=== PATIENT | female | born 1950 | race Caucasian/White ===

== ENCOUNTER → 2017-05-15 15:18 | Outpatient (CLI) | payer MEDICARE, OTHER, SELFPAY ==
--- NOTE | 2017-05-15 15:24 | RAD_ITS ---
STUDY: X-RAY - PELVIS AND RIGHT HIP REASON FOR EXAM: Female, 67 years old. Right arm pain and swelling for a couple weeks TECHNIQUE: Radiological exam, hip, unilateral, with pelvis when performed; 2 or 3 views. COMPARISON: None. FINDINGS: There is a non-specific bowel gas pattern. Normal visualized soft tissue structures. The patient is status post L4-L5 instrumentation and laminectomy with fusion Normal bilateral iliac wings, sacroiliac joints and visualized sacrum. Normal bilateral superior and inferior pubic rami. Normal pubic symphysis. Normal bilateral ischial tuberosities. Normal visualized femoral head. Normal acetabulum. Normal hip joint. RAD/Hip 2-3 Views with Pelvis IMPRESSION: No acute lesions noted. Post surgical changes in the lower lumbar spine Electronically Signed: Kei Contreras MD, FACR at 7:38 EST , Service support ,
== END ==
PROVIDERS: Family Provider Family Medicine; PCP Family Medicine; Visit Provider Family Medicine
DX: R10.31 Right lower quadrant pain (principal)
CPT/HCPCS: 73502

== ENCOUNTER 2020-06-16 08:00 | Outpatient (RCR) | payer MEDICARE, OTHER, SELFPAY ==
[2020-06-16] MEDS: COVID-19 VACC, MRNA(PFIZER)/PF 30 MCG/0.3 ML SYRINGE IM (13:19)
[2020-07-07] MEDS: COVID-19 VACC, MRNA(PFIZER)/PF 30 MCG/0.3 ML SYRINGE IM (13:20)
== END 2020-09-15 23:59 ==
LOC: IMMUN 08:00
PROVIDERS: PCP Family Medicine; Visit Provider Family Medicine
DX: Z23 Encounter for immunization (principal)
CPT/HCPCS: 0001A; 0002A; 91300

== ENCOUNTER → 2020-12-29 | Outpatient (CLI) | payer MEDICARE, OTHER, SELFPAY | END | disposition home or self-care (01) | LOC: LABSPEC 15:25 | PROVIDERS: PCP Family Medicine; Referring Provider Physician Assistant Surgical; Visit Provider Physician Assistant Surgical | DX: U07.1 COVID-19 (principal) | CPT/HCPCS: 87635; U0005; U0003 ==

== ENCOUNTER → 2021-01-21 15:34 | Outpatient (CLI) | payer MEDICARE, OTHER, SELFPAY ==
--- NOTE | 2021-01-21 15:38 | RAD_ITS ---
STUDY: X-RAY CHEST REASON FOR EXAM: Female, 70 years old. One-week history of cough. TECHNIQUE: COMPARISON: None. FINDINGS: Hyperinflation. The lungs are clear. There is no demonstrated pleural abnormality. Normal size heart. Normal mediastinum and bay. Normal visualized pulmonary arteries. Normal visualized aortic arch and descending thoracic aorta. There are diffuse degenerative changes of the visualized thoracic spine. Normal visualized ribs, clavicles, and shoulders. There is no demonstrated abnormality of the visualized soft tissue structures of the upper abdomen. RAD/Chest PA and Lateral IMPRESSION: Hyperinflation. The lungs are clear. Electronically Signed: Hector Tran MD at 15:49 EDT , Service support ,
== END ==
PROVIDERS: PCP Family Medicine; Referring Provider Physician Assistant; Visit Provider Physician Assistant
DX: R05.9 Cough, unspecified (principal)
CPT/HCPCS: 71046

== ENCOUNTER → 2021-10-04 | Outpatient (CLI) | payer MEDICARE, OTHER, SELFPAY ==
--- NOTE | 2021-10-04 16:34 | RAD_ITS ---
STUDY: X-RAY - PELVIS AND RIGHT HIP REASON FOR EXAM: Female, 71 years old. Technologist Notes RIGHT HIP AND LOWER BACK PAIN. M16.11 TECHNIQUE: XR Hip Unilateral with Pelvis when performed; 2-3 Views COMPARISON: None. FINDINGS: There is a non-specific bowel gas pattern. Normal visualized soft tissue structures. Normal bilateral iliac wings, sacroiliac joints and visualized sacrum. Normal bilateral superior and inferior pubic rami. Normal pubic symphysis. Normal bilateral ischial tuberosities. Total right hip arthroplasty. No acute findings of the left hip. Spinal fixation hardware noted in the visualized lumbar spine. RAD/HIP, UNI W/ Pelvis 2-3 Views IMPRESSION: No acute findings. Electronically Signed: Nabil Aly MD at 17:23 EDT ,
--- NOTE | 2021-10-04 16:40 | RAD_ITS ---
STUDY: X-RAY - LUMBAR SPINE REASON FOR EXAM: Female, 71 years old. Technologist Notes RIGHT HIP AND LOWER BACK PAIN. M96.1 TECHNIQUE: XR Spine Lumbar 2 or 3 Views COMPARISON: Nov 26 2015 3:59pm FINDINGS: Normal lumbar lordosis. There is a dextroscoliosis of the lumbar spine. There is a normal alignment of the vertebrae. status post L4-L5 posterior fusion and laminectomy. There is multilevel endplate spondylosis of the lumbar vertebrae. There is multi-level degenerative disc disease with multi-level disc space narrowing. There are atherosclerotic vascular calcifications. The soft tissue structures are unremarkable. RAD/Lumbar Spine 2 or 3 Views IMPRESSION: Degenerative changes of the spine, as detailed above. Electronically Signed: Nabil Aly MD at 18:05 EDT ,
== END | disposition home or self-care (01) ==
LOC: RAD 16:32
PROVIDERS: PCP Family Medicine; Visit Provider Anesthesiology Pain Medicine
DX: M16.11 Unilateral primary osteoarthritis, right hip (principal); M96.1 Postlaminectomy syndrome, not elsewhere classified
CPT/HCPCS: 72100; 73502

== ENCOUNTER 2022-03-25 10:30 | Outpatient (RCR) | payer MEDICARE, OTHER, SELFPAY ==
--- NOTE | 2022-01-24 09:38 | HP.PTEVAL ---
Patient's Visit Information OMI CASEY is a 71 year old F referred to Physical Therapy by Dr. Danny Saldaña MD with a diagnosis of Vestibular Therapy. Date of Evaluation: 01/24/22 Physical Therapist: FELECIA Reilly - Visit Plan Frequency: 2x /Week Duration: 2 Months Plan: 2X/ week for 8 weeks for vestibular inputs, standing on foam, walking BW, head turns, gait training (heel to toe, longer strides), high level balance with HEP. HEP: seated horizontal head turns and vertical head turns - Subjective Pt is having a lot of difficulty with balance. Pt has trouble walking on uneven surfaces. She will occ miss a step with just walking or going up stairs. Stepping when outside of her house she feels more uncomfortable and the uneven surfaces give her a lot of trouble. Walking in the the yard and in the field was hard for her and she would lose her balance and has not fallen and she veering. Pt is very fearful at this point of falling. 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 Pt noticed a little funny feeling in her head this morning but no room spinning. She has to make sure she has to have her balance before she moves when stands up out of bed. This has been sneaking up on her for the last 6 months. - Pain R hip pain Pain Intensity (Out of 10): 0 Pain Intensity Range: 3 Comment: with movement/wrong way back pain Pain Intensity (Out of 10): 1 - Objective Gait: Walks with shortened steps and decrease stride length and increase veering. No trunk rotation and no arm swing and no head movement. Stairs: Up and down stairs with 2 hand rails recip with CGA. FGA: 9. CATSIB: 62. LE MMT: hip flex R 8.3# and L hip 13.2. R knee ext 15.2# and L 23.8#. R knee flex 11.5# and 12.1#. Heel and toe raises able with UE support and struggles with toe raises - Balance/Special Test Scores Functional Gait Assessment Score: 9 % Disability: 70.0000 CATSIB Score (Max score 120 seconds): 62 Lower Extremity Functional Score: 30 - Goals Goal 1:: I HEP Goal Time Frame: 8-12 Weeks Goal 2:: Increase CATSIB score (at eval 62) to decrease fall risk Goal Time Frame: 8-12 Weeks Goal 3:: Increase FGA score to decrease balance (score at eval was 9) Goal Time Frame: 8-12 Weeks Goal 4:: Be able to walk with increase stride with heel to toe gait pattern and increase arm swing Goal Time Frame: 8-12 Weeks Goal 5:: Be able to walk BW with increase stride and confidence with CGA without LOB Goal Time Frame: 8-12 Weeks Goal 6:: Be able to stand on foam for 30 seconds on flatter foot (likes to stand on her toes) Goal Time Frame: 8-12 Weeks - Rehabilitation Potential Rehabilitation Potential: Good - Anticipated Interventions Patient/Client Instruction: Educate patient on: Condition, Plan of Care For the Purpose of:: To improve muscle performance and motor function, To improve ability to perform ADL's, To increase tolerance to activity/condition/position, To improve performance and independence with ADL's, To decrease level of supervision to perform tasks, To improve ability of physical actions for home/community/work/leisure, To improve gait and locomotor functions, To improve health of tissue, To decrease soft tissue restriction, To increase flexibility/ROM, To improve endurance, To improve balance, To improve safety with gait Therapeutic Exercise to Include: Strength training, Endurance training, Balance training, Coordination, Body mechanics, Postural training, Flexibilty training, Gait and locomotor training, Neuromotor development, Passive ROM, Active ROM For the Purpose of:: To improve nutrient delivery to tissue, To improve muscle performance and motor function, To improve ability to perform ADL's, To increase tolerance to activity/condition/position, To improve performance and independence with ADL's, To decrease level of supervision to perform tasks, To improve ability of physical actions for home/community/work/leisure, To improve gait and locomotor functions, To decrease soft tissue restriction, To increase flexibility/ROM, To improve endurance, To improve balance, To improve safety with gait Functional Training to Include: Gait training For the Purpose of:: To improve gait and locomotor functions, To improve balance, To improve safety with gait, To assume or resume ADL's, To improve safety, To improve health and function Thank you for the opportunity to evaluate your patient. For Medicare and Medicare HMO plans, please review the plan of care and approve it. It will need to be FAXED BACK to us at [phone] for Medicare purposes. For Medicare only, by signing this I certify the plan of care. Please let me know if there are questions or concerns regarding this plan of care. Physician Signature: Date:
--- NOTE | 2022-03-02 13:52 | HP.PTREVAL ---
Dr. Danny Saldaña MD, It has been my pleasure to treat OMI CASEY over the last 11 visits for Vestibular Therapy. Please see the progress note below for an update on the physical therapy plan of care! Subjective: Pt thinks she was doing better but she is able to correct herself each time. She feels that when the sides of things are not equal she tends to lose her balance. She just had a prescription updated in her glasses... she feels that the bifocal placement is not normal. Objective/Function: CATSIB 120/120. FGA 20/30. pt is able to squat to pick something up off the floor using hand on the desk to steady self. Pt feels that her confidence with her balance is lower than how she actually performs Plan Plan: 2X/ week for 3 weeks to build confidence for vestibular inputs, standing on foam, walking BW, head turns, gait training (heel to toe, longer strides), high level balance with HEP. HEP: seated horizontal head turns and vertical head turns Balance/Gait/Functional tests - Balance/Special Test Scores Functional Gait Assessment Score: 20 % Disability: 33.3400 CATSIB Score (Max score 120 seconds): 120 Lower Extremity Functional Score: 37 Goals Goal 1:: I HEP Goal Time Frame: 8-12 Weeks Goal Progress: Goal Met Goal 2:: Increase CATSIB score (at eval 62) to decrease fall risk Goal Time Frame: 8-12 Weeks Goal Progress: Goal Met Goal 3:: Increase FGA score to decrease balance (score at eval was 20) Goal Time Frame: 8-12 Weeks Goal Progress: Progressing Goal 4:: Be able to walk with increase stride with heel to toe gait pattern and increase arm swing Goal Time Frame: 8-12 Weeks Goal 5:: Be able to walk BW with increase stride and confidence with CGA without LOB Goal Time Frame: 8-12 Weeks Goal Progress: Goal Met Goal 6:: Be able to stand on foam for 30 seconds on flatter foot (likes to stand on her toes) Goal Time Frame: 8-12 Weeks Goal Progress: Goal Met Anticipated Interventions Patient/Client Instruction: Educate patient on: Condition, Plan of Care For the Purpose of:: To improve muscle performance and motor function, To improve ability to perform ADL's, To increase tolerance to activity/condition/position, To improve performance and independence with ADL's, To decrease level of supervision to perform tasks, To improve ability of physical actions for home/community/work/leisure, To improve gait and locomotor functions, To improve health of tissue, To decrease soft tissue restriction, To increase flexibility/ROM, To improve endurance, To improve balance, To improve safety with gait Therapeutic Exercise to Include: Strength training, Endurance training, Balance training, Coordination, Body mechanics, Postural training, Flexibilty training, Gait and locomotor training, Neuromotor development, Passive ROM, Active ROM For the Purpose of:: To improve nutrient delivery to tissue, To improve muscle performance and motor function, To improve ability to perform ADL's, To increase tolerance to activity/condition/position, To improve performance and independence with ADL's, To decrease level of supervision to perform tasks, To improve ability of physical actions for home/community/work/leisure, To improve gait and locomotor functions, To decrease soft tissue restriction, To increase flexibility/ROM, To improve endurance, To improve balance, To improve safety with gait Functional Training to Include: Gait training For the Purpose of:: To improve gait and locomotor functions, To improve balance, To improve safety with gait, To assume or resume ADL's, To improve safety, To improve health and function Please do not hesitate to contact me at [phone] by phone or if you have questions or concerns regarding this new plan of care! Sincerely, FELECIA Reilly
--- NOTE | 2022-03-25 12:08 | HP.PTDCSUM ---
It has been my pleasure to treat OMI CASEY referred by Dr. Danny Saldaña MD, with the diagnosis of Vestibular Therapy for a total of 16 visit(s). Discharge Date: 03/25/22 Please see the following information for a summary of their discharge status. Subjective: Pt has her neurology appt on 04-20-22. She is doing [employer] Sho[employer] instead of exercises. She does walk at home with turning her head around. Pt still complaining of not being able to pick L leg up to get into the car. Pt still feels that she has to be watchful of her balance all the time and her balance is not natural anymore. Have not fallen since been to therapy. R hip pain Pain Intensity (Out of 10): 0 back pain Pain Intensity (Out of 10): 7 % Improvement: 60 Objective/Function: FGA /. Pt is able to walk with high march with equal ability on the L and the R. Stairs; up and down stairs recip with no hand rail. Walking BW today pt was able with out any retro LOB Goal 1:: I HEP Goal Progress: Goal Met Goal 2:: Increase CATSIB score (at eval 62) to decrease fall risk Goal Progress: Goal Met Goal 3:: Increase FGA score to decrease balance (score at eval was 20) Goal Progress: Progressing Goal 4:: Be able to walk with increase stride with heel to toe gait pattern and increase arm swing Goal Progress: Goal Met Goal 5:: Be able to walk BW with increase stride and confidence with CGA without LOB Goal Progress: Goal Met Goal 6:: Be able to stand on foam for 30 seconds on flatter foot (likes to stand on her toes) Goal Progress: Goal Met Plan: DC PT to HEP Discharge Comments: DC PT If there are questions or concerns regarding this patient's physical therapy, please feel free to call me at [phone]. Thank you for the referral of this patient. Sincerely, Katia Alvarez, MPT Balance/Gait/Functional tests - Balance/Special Test Scores Functional Gait Assessment Score: 21 % Disability: 30.0000 CATSIB Score (Max score 120 seconds): 120 Lower Extremity Functional Score: 41
== END 2022-03-25 13:33 | disposition home or self-care (01) ==
LOC: PT 10:30
PROVIDERS: PCP Family Medicine; Referring Provider Family Medicine; Visit Provider Family Medicine
DX: R27.0 Ataxia, unspecified (principal)
CPT/HCPCS: 97110; 97161; 97530

== ENCOUNTER → 2022-06-10 | Outpatient (CLI) | payer MEDICARE, OTHER, SELFPAY ==
--- NOTE | 2022-06-10 10:31 | VDLE_ITS ---
Reason For Study: PAIN RIGHT LEFT CFV is compressible, spontaneous, phasic, CFV is compressible, spontaneous, phasic, competent and demonstrates normal competent, and demonstrates normal augmentation. augmentation. FV is compressible, spontaneous, phasic, FV is compressible, spontaneous, phasic, competent and demonstrates normal competent and demonstrates normal augmentation. augmentation. POP V is compressible, spontaneous, phasic, POP V is compressible, spontaneous, phasic, competent and demonstrates normal competent and demonstrates normal augmentation. augmentation. T/P Trunk is compressible. T/P Trunk is compressible. PTV is compressible. PTV is compressible. RT PerV is compressible. LT PerV is compressible. SFJ is competent and measures 0.45 x 0.43 cm. SFJ is competent and measures 0.56 x 0.54 cm. GSV proximal thigh measures 0.33 x 0.32 cm. GSV proximal thigh measures 0.31 x 0.31 cm. GSV at knee measures 0.30 x 0.27 cm. GSV at knee measures 0.23 x 0.23 cm. GSV is competent throughout. GSV is competent throughout. SSV proximal calf is competent and measures SSV proximal calf is competent and measures 0.22 x 0.24 cm. 0.22 x 0.21 cm. Procedure This is a venous duplex using B-mode, color flow and spectral Doppler. Exam performed in department. VL/Venous Duplex US - Miguel Extrem Interpretation Summary Deep veins of the bilateral lower extremities are patent and compressible segme ntally. There is no evidence of bilateral lower extremity deep vein thrombosis. The bilateral great saphenous veins appear patent and compressible segmentally. Negative for reflux bilateral Ordering Physician: Anum Gray Referring Physician: Danny Saldaña Performed By: Kera Anderson, RDCS, RVT
== END | disposition home or self-care (01) ==
LOC: CVS 09:52
PROVIDERS: PCP Family Medicine; Visit Provider Physician Assistant
DX: M79.604 Pain in right leg (principal); M79.605 Pain in left leg
CPT/HCPCS: 93970

== ENCOUNTER → 2022-07-21 | Outpatient (CLI) | payer MEDICARE, OTHER, SELFPAY ==
[2022-07-21 15:44] LABS: Erythrocyte Sedimentation Rate 7 mm/hr (0-30)
[2022-07-21 15:58] LABS: CRP 3.64 mg/L (0.0-3.0); Creatinine, Serum 1.02 mg/dL (0.55-1.02); EST Glomerular Filtration Rate 57 mL/min (>60); Est Glom Filt Rate - Afr Amer 69 mL/min (>60)
== END | disposition home or self-care (01) ==
LOC: CVS 07:53 → LAB 14:16
PROVIDERS: PCP Family Medicine; Referring Provider Physician Assistant; Visit Provider Physician Assistant
DX: I73.9 Peripheral vascular disease, unspecified (principal)
CPT/HCPCS: 36415; 82565; 85652; 86140

== ENCOUNTER → 2022-07-25 | Outpatient (CLI) | payer MEDICARE, OTHER, SELFPAY ==
--- NOTE | 2022-07-25 18:10 | CT_ITS ---
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 This CT exam was performed using one or more of the following dose reduction techniques: automated exposure control, adjustment of the mA and/or kV according to patient size, and/or use of iterative reconstruction technique. This report was created using [employer] report generation technology. MIP reconstructed images were created and reviewed. CONTRAST: IV 100mL [id number] COMPARISON: None. FINDINGS: VASCULATURE: AORTA: Moderate atherosclerotic changes of the abdominal aorta but no aneurysm. No occlusion or significant stenosis. No dissection. CELIAC TRUNK AND MESENTERIC ARTERIES: No acute findings. No occlusion or significant stenosis. No dissection. RENAL ARTERIES: No acute findings. No occlusion or significant stenosis. No dissection. RIGHT ILIAC ARTERIES: No acute findings. No occlusion or significant stenosis. No dissection. RIGHT FEMORAL/POPLITEAL ARTERIES: No acute findings. No occlusion or significant stenosis. No dissection. RIGHT CALF/FOOT ARTERIES: No acute findings. No occlusion or significant stenosis. LEFT ILIAC ARTERIES: No acute findings. No occlusion or significant stenosis. No dissection. LEFT FEMORAL/POPLITEAL ARTERIES: No acute findings. No occlusion or significant stenosis. No dissection. LEFT CALF/FOOT ARTERIES: No acute findings. No occlusion or significant stenosis. LOWER THORAX: Unremarkable. Lung bases are clear. No cardiomegaly. No significant pericardial effusion. ABDOMEN: LIVER: Unremarkable. Homogeneous. No focal mass. GALLBLADDER AND BILE DUCTS: Unremarkable. No calcified gallstones. No gallbladder distention or wall edema. No intra- or extrahepatic biliary ductal dilation. PANCREAS: Unremarkable. No focal cystic or solid mass. SPLEEN: Unremarkable. Normal size without focal cystic or solid mass. ADRENALS: Unremarkable. No nodules. KIDNEYS AND URETERS: Unremarkable. Normal renal size and position. No hydronephrosis. STOMACH AND BOWEL: Moderate amount of stool throughout the colon. No stomach or bowel distention. No focal inflammatory change. PELVIS: APPENDIX: The appendix is normal. BLADDER: Unremarkable. REPRODUCTIVE: Unremarkable as visualized. No mass. ABDOMEN, PELVIS and LOWER EXTREMITIES: INTRAPERITONEAL SPACE: Unremarkable. No ascites or other fluid collection. No free air. BONES/JOINTS: Degenerative and surgical changes of the lumbar spine, with posterior fusion at L4/5. Right hip arthroplasty. No suspicious lytic or blastic abnormality. SOFT TISSUES: Unremarkable. No discrete abdominal or pelvic wall hernia. LYMPH NODES: Unremarkable. No enlarged lymph nodes. CT/CTA Abd w/Runoff W/WO Contrast IMPRESSION: Moderate atherosclerotic changes of the abdominal aorta but no aneurysm. No other significant arterial pathology identified, no significant stenosis within the lower extremity arteries. Electronically Signed: Nabil Ingram MD at 8:00 EDT ,
== END | disposition home or self-care (01) ==
LOC: CT 18:10
PROVIDERS: PCP Family Medicine; Referring Provider Physician Assistant; Visit Provider Physician Assistant
DX: I75.029 Atheroembolism of unspecified lower extremity (principal); I70.0 Atherosclerosis of aorta
CPT/HCPCS: 75635; Q9967; A4216

== ENCOUNTER → 2022-09-01 | Outpatient (CLI) | payer MEDICARE, OTHER, SELFPAY ==
--- NOTE | 2022-09-01 10:06 | ART_ITS ---
Reason For Study: PVD Procedure A bilateral lower extremity continuous wave Doppler with analog waveform analysis,segmental pressures,and ankle brachial indexes without exercise. Performed with Raynaud's protocol. Left Segmental Pressures Left brachial= 133mmHg. Left posterior tibial artery = 155mmHg. Left dorsalis pedis artery = 155mmHg. Left digit = 81 mmHg. The left dorsalis pedis waveforms are triphasic. The left posterior tibial artery waveforms are triphasic. Right Segmental Pressures Right brachial= 136mmHg. Right posterior tibial artery = 166mmHg. Right dorsalis pedis artery = 147mmHg. Right digit = 94 mmHg. The right dorsalis pedis waveforms are triphasic. The right posterior tibial artery waveforms are triphasic. Indices The right ankle brachial index by the dorsalis pedis is 1.08. The right ankle brachial index by the posterior tibial artery is 1.22. The right digital-brachial index is 0.69. The left ankle brachial index by the dorsalis pedis is 1.14. The left ankle brachial index by the posterior tibial artery is 1.14. The left digital-brachial index is 0.60. VL/Lower Ext Art Exam w/o Exercis Interpretation Summary Right LARA 1.22, normal. Doppler/PVR waveforms of the right leg normal at rest. TBI and digit waveforms diminished, pedal/digit disease vs spasm Right lower extremity digits with significant drop in pressure with exposure to cold stimuli Left LARA 1.14, normal. Doppler/PVR waveforms of the left leg normal at rest. TB I and digit waveforms diminished, pedal/digit disease vs spasm Left lower extremity digits with significant drop in pressure with exposure to cold stimuli Ordering Physician: Anum Gray Referring Physician: Danny Saldaña Performed By: Zenaida Stallworth RVT
== END | disposition home or self-care (01) ==
LOC: CVS 10:00
PROVIDERS: PCP Family Medicine; Referring Provider Surgery Trauma Surgery; Visit Provider Surgery Trauma Surgery
DX: I73.9 Peripheral vascular disease, unspecified (principal)
CPT/HCPCS: 93923

== ENCOUNTER → 2023-08-16 | Outpatient (CLI) | payer MEDICARE, OTHER, SELFPAY ==
--- NOTE | 2023-08-16 11:30 | RAD_ITS ---
STUDY: X-RAY - CERVICAL SPINE REASON FOR EXAM: Female, 73 years old. Other cervical disc degeneration, unspecified cervical region TECHNIQUE: 3 view(s) of the cervical spine were obtained. COMPARISON: None FINDINGS: Normal anterior atlantoaxial articulation. Normal odontoid process. Normal cervical lordosis. Spondylosis and disc space narrowing at the C5-C6 and C6-C7 levels. Normal disc space heights. Normal visualized intervertebral neuroforamina. The soft tissue structures are unremarkable. RAD/Cerv Spine 2 or 3 Views IMPRESSION: Spondylosis and disc space narrowing at the C5-C6 and C6-C7 levels. Electronically Signed: Hector Tran MD at 14:33 EDT ,
== END | disposition home or self-care (01) ==
LOC: RAD 11:16
PROVIDERS: PCP Family Medicine; Referring Provider Anesthesiology Pain Medicine; Visit Provider Anesthesiology Pain Medicine
DX: M50.30 Other cervical disc degeneration, unspecified cervical region (principal)
CPT/HCPCS: 72040

== ENCOUNTER 2023-09-13 10:00 | Outpatient (RCR) | payer MEDICARE, OTHER, SELFPAY ==
--- NOTE | 2023-08-14 10:56 | HP.PTEVAL_ITS ---
Patient's Visit Information Visit Information Visit Information: OMI CASEY is a 73 year old F referred to Physical Therapy by Dr. 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 Date of Evaluation: 08/14/23 Physical Therapist: FELECIA Reilly Visit Plan Frequency: 2x /Week Duration: 2 Months Plan: 2X/ week for 8 weeks for neutral spine core stability, Lower trunk st retches (being mindful of THR), LE strength, gentle stretches or ROM into extension (even if Prone to SO...pt sleeps in a recliner), some gait training and light balance as time allows (for heel to toe gait training and some walking with head turns...pt might get a script for balance as well). HEP: bridges, HS flossing, supine long body stretch with arms overhead Subjective Subjective: 7-10 years ago she had back surgery and they put rods in her back. She saw the surgeon and he wanted her to do other things before he does surgery on her but he did not elaborate. He gave her an order for PT for her back. Her main complaints right now is LB pain that radiates to the L down her L butt cheek and pain down the front of her leg to her chin in the morning but can usually walk the front of the leg pain out. She had a really bad fall about 6 weeks ago and hit her head and her side. She had a massage here the other day and it was great but she could feel the pain in her head. Her balance is still off. The neurologist did not say much about her balance but decided she had essential tremor. She has not had any images on her back since 2022. She has not tried any exercises for her back. She takes Alieve once a day and Tylenol once a day. She is sleeping in a recliner. She reports leg weakness. She has to be careful on the stairs and has to hold onto the railing and feels that her leg strength is weak also. She has had multiple injections in her back for years now. She has another appt with Dr Louise on Mon. She has also of an ablation too. She has most of her pain sit to stand and twisting. She went to a chiropractor and he was afraid to do anything with her. Her sister was present and gave some subjective info and her son does not feel she is safe to be walking out by herself. Pain Back pain: Pain Intensity (Out of 10): 0 Pain Intensity Range: 10 Objective Objective: Gait: walks with short stride and decreased heel to toe gait pattern. She does veer but catches her self. She will walk with heel to toe gait pattern if cued to do so. She is unable to walk safely with turning her head R or L Trunk AROM: Flex 75, ext 50, Rot B 75, Sb B 75 (pain going to the R side) LE MMT: R hip flex 11.3 and l 10.7 R knee ext 15.1 and L 16.5 R knee flex 7.5 and L 7.2 R DF 10.4 and L 13 Patellar DTR 2+/3 B Sit to stand: Pt is able to get up from the chair without using her arms but hesitant Increase pain with L SLR but no pain after 90/90 flossing -B SLUMP test Balance/Special Test Scores Oswestry Low Back Score: 21 Goals Goal 1:: I HEP Goal Time Frame: 6-8 Weeks Goal 2:: Be able to sit to stand without having pain Goal Time Frame: 6-8 Weeks Goal 3:: Be able to do a SLR without pain Goal Time Frame: 6-8 Weeks Goal 4:: Be able to walk with heel to toe gait pattern with CGA Goal Time Frame: 6-8 Weeks Goal 5:: Increase LE strength (at the time of the eval: LE MMT: R hip flex 11.3 and l 10.7 R knee ext 15.1 and L 16.5 R knee flex 7.5 and L 7.2 R DF 10.4 and L 13). Goal Time Frame: 6-8 Weeks Rehabilitation Potential Rehabilitation Potential: Good Anticipated Interventions Patient/Client Instruction: Educate patient on: Condition and Plan of Care For the Purpose of:: To decrease pain, To increase ROM, To improve nutrient delivery to tissue, To improve muscle performance and motor function, To improve ability to perform ADL's, To improve performance and independence with ADL's, To decrease level of supervision to perform tasks, To improve gait and locomotor functions, To improve health of tissue, To decrease soft tissue restriction, To increase flexibility/ROM and To improve endurance Therapeutic Exercise to Include: Strength training, Balance training, Body mechanics, Postural training, Flexibilty training, Gait and locomotor training, Neuromotor development, Passive ROM, Active ROM, Dynamic Lumbar Stabilization, Emily Exercises and Scapular Strength/Stabilization For the Purpose of:: To decrease pain, To increase ROM, To improve nutrient delivery to tissue, To improve muscle performance and motor function, To increase tolerance to activity/condition/position, To improve performance and independence with ADL's, To decrease level of supervision to perform tasks, To improve ability of physical actions for home/community/work/leisure, To improve gait and locomotor functions, To improve health of tissue, To decrease soft tissue restriction, To increase flexibility/ROM, To improve endurance, To improve balance and To improve safety with gait Functional Training to Include: Gait training For the Purpose of:: To improve gait and locomotor functions and To improve safe ty with gait Manual Therapy Techniques to Include: Passive ROM For the Purpose of:: To increase ROM Text: Thank you for the opportunity to evaluate your patient. For Medicare and Medicare HMO plans, please review the plan of care and approve it. It will need to be FAXED BACK to us at [phone] for Medicare purposes. For Medicare only, by signing this I certify the plan of care. Please let me know if there are questions or concerns regarding this plan of care. Physician Yadiel medrano: Date:
--- NOTE | 2023-09-13 12:38 | HP.PTDCSUM ---
Discharge Summary D/C summary: It has been my pleasure to treat OMI CASEY referred by Dr. Danny Saldaña MD, with the diagnosis of Chronic LBP without sciatica for a total of 9 visit(s). Discharge Date: 09/13/23 Please see the following information for a summary of their discharge status. Subjective Subjective: Pt had back injection and it helped a lot. She feels that she is much better. Pain Back pain: Pain Intensity (Out of 10): 0 Overall Improvement % Improvement: 85 Objective Objective/Function: LE MMT: R hip flex 11.3 and l 10.7 R knee ext 15.1 and L 16.5 R knee flex 7.5 and L 7.2 R DF 10.4 and L 13). Machine that was used to test strength in the beginning was not working so testing results were not obtained Goals Goal 1:: I HEP Goal Progress: Goal Met Goal 2:: Be able to sit to stand without having pain Goal Progress: Goal Met Goal 3:: Be able to do a SLR without pain Goal Progress: Progressing Goal 4:: Be able to walk with heel to toe gait pattern with CGA Goal Progress: Goal Met Goal 5:: Increase LE strength (at the time of the eval: LE MMT: R hip flex 11.3 and l 10.7 R knee ext 15.1 and L 16.5 R knee flex 7.5 and L 7.2 R DF 10.4 and L 13). Plan Plan: 2X/ week for 8 weeks for neutral spine core stability, Lower trunk stretches (being mindful of THR), LE strength, gentle stretches or ROM into extension (even if Prone to SO...pt sleeps in a recliner) No longer sleeps in recliner 2 weeks ago* [employer], some gait training and light balance as time allows (for heel to toe gait training and some walking with head turns...pt might get a script for balance as well). HEP: bridges, /90 HS flossing, supine long body stretch with arms overhead D/C Information Discharge Comments: DC PT to HEP d/c sentence: If there are questions or concerns regarding this patient's physical therapy, please feel free to call me at [phone]. Thank you for the referral of this patient. Sincerely, Katia Alvarez, MPT Balance/Gait/Functional tests Balance/Special Test Scores Oswestry Low Back Score: 21 Lower Extremity Functional Score: 49 Improvement % Improvement: 85
== END 2023-09-13 13:44 | disposition home or self-care (01) ==
LOC: PT 10:00
PROVIDERS: PCP Family Medicine; Referring Provider Family Medicine; Visit Provider Family Medicine
DX: M54.50 Low back pain, unspecified (principal); G89.29 Other chronic pain
CPT/HCPCS: 97110; 97162

== ENCOUNTER → 2023-10-18 | Outpatient (CLI) | payer MEDICARE, OTHER, SELFPAY ==
--- NOTE | 2023-10-18 12:30 | RAD_ITS ---
STUDY: X-RAY - PELVIS AND LEFT HIP REASON FOR EXAM: Female, 73 years old. L HIP OA TECHNIQUE: 3 views of the pelvis and hip. COMPARISON: 10/04/2021 FINDINGS: There is a non-specific bowel gas pattern. Normal visualized soft tissue structures. Normal bilateral iliac wings, sacroiliac joints and visualized sacrum. Normal bilateral superior and inferior pubic rami. Normal pubic symphysis. Normal bilateral ischial tuberosities. Normal visualized femoral head. Normal acetabulum. Normal hip joint. RAD/HIP, UNI W/ Pelvis 2-3 Views IMPRESSION: Normal x-ray examination of the pelvis and hip. Electronically Signed: Daryn Mcdonnell MD at 13:18 EDT ,
== END | disposition home or self-care (01) ==
LOC: RAD 12:27
PROVIDERS: PCP Family Medicine; Referring Provider Anesthesiology Pain Medicine; Visit Provider Anesthesiology Pain Medicine
DX: M16.12 Unilateral primary osteoarthritis, left hip (principal)
CPT/HCPCS: 73502

== ENCOUNTER 2024-01-03 10:30 | Outpatient (RCR) | payer MEDICARE, OTHER, SELFPAY ==
--- NOTE | 2023-12-05 12:44 | HP.PTEVAL ---
Patient's Visit Information Visit Information Visit Information: OMI CASEY is a 73 year old F referred to Physical Therapy by Dr. Daniel Gross MD with a diagnosis of L knee AROM. Date of Evaluation: 12/05/23 Physical Therapist: FELECIA Reilly Visit Plan Frequency: 2x /Week Duration: 2 Months Plan: 2X/ week for 6-8 weeks for L knee AROM, L hip and knee strength, stairs, decrease inflammation, functional activities with HEP HEP: SLR and L S/L hip abd Subjective Subjective: About 6-8 months ago she notices pain up the stairs and cracking. It is not painful all the time. She had no pain walking in today. Dr Gross did an x-ray but she does not know the answer. She got a second opinion and both Dr said to do PT and no knee replacement any time soon. She got an injection in her L knee and it really helped. Pain L knee pain: Pain Intensity (Out of 10): 0 R knee pain: Pain Intensity (Out of 10): 0 Objective Objective: Gait: Walk with slow step and L LE seems not as coordinated as the R but equal stance time Stairs: up and down the stairs recip with 1 hand rail... very caution and some hesitancy. LE MMT: R hip flex 4/5 and L 4-/5 knee ext B 4/5 Knee flex B 4-/5 R hip abd 4-/5 and L 3+/5 R knee AROM: 0-123 L knee AROM: -2 to 117 L knee mid patella 39.1 cm and R 37 cm Bridge: 3/4 normal ROM bridge Balance/Special Test Scores Lower Extremity Functional Score: 40 Goals Goal 1:: I HEP Goal Time Frame: 6-8 Weeks Goal 2:: Increase L knee AROM (at time of the eval -2 to 117) Goal Time Frame: 6-8 Weeks Goal 3:: Decrease inflammation (girth measurements at eval:L knee mid patella 39.1 cm and R 37 cm) Goal Time Frame: 6-8 Weeks Goal 4:: Be able to go up and down the stairs recip with 1 hand rail with no pain at least 50% of the time Goal Time Frame: 6-8 Weeks Rehabilitation Potential Rehabilitation Potential: Good Anticipated Interventions Patient/Client Instruction: Educate patient on: Condition and Plan of Care For the Purpose of:: To decrease pain, To increase ROM, To improve nutrient delivery to tissue, To improve muscle performance and motor function, To improve ability to perform ADL's, To increase tolerance to activity/condition/position, To improve performance and independence with ADL's, To decrease level of supervision to perform tasks, To improve ability of physical actions for home/community/work/leisure, To improve gait and locomotor functions, To improve health of tissue, To decrease soft tissue restriction, To increase flexibility/ROM and To improve endurance Therapeutic Exercise to Include: Strength training, Endurance training, Balance training, Body mechanics, Flexibilty training, Gait and locomotor training, Active ROM and Dynamic Lumbar Stabilization For the Purpose of:: To decrease pain, To increase ROM, To improve nutrient delivery to tissue, To improve muscle performance and motor function, To improve ability to perform ADL's, To increase tolerance to activity/condition/position, To improve performance and independence with ADL's, To decrease level of supervision to perform tasks, To improve ability of physical actions for home/community/work/leisure, To improve gait and locomotor functions, To improve health of tissue and To increase flexibility/ROM Functional Training to Include: Gait training For the Purpose of:: To improve gait and locomotor functions Text: Thank you for the opportunity to evaluate your patient. For Medicare and Medicare HMO plans, please review the plan of care and approve it. It will need to be FAXED BACK to us at [phone] for Medicare purposes. For Medicare only, by signing this I certify the plan of care. Please let me know if there are questions or concerns regarding this plan of care. Physician Signature: Date:
--- NOTE | 2024-01-03 11:17 | HP.PTDCSUM_ITS ---
Discharge Summary D/C summary: It has been my pleasure to treat OMI CASEY referred by Dr. Daniel Gross MD, with the diagnosis of L knee AROM for a total of 8 visit(s). Discharge Date: 01/03/24 Please see the following information for a summary of their discharge status. Subjective Subjective: Pt reports that she is better. She reports that her pain is still slight. 60-70% improvement. Pt still struggles on the stairs with her pain and balance (more up than down). She can feel her knee swelling if she is on it too long. She thinks that if she does her exercises at home she will be fine. She thinks that the clam shells may have bothered her hip several visits ago and they were stopped several visits ago but her pain still persists. She will talk with Dr Louise because could be referred pain Pain L knee pain: Pain Intensity (Out of 10): 0 R knee pain: Pain Intensity (Out of 10): 0 Overall Improvement % Improvement: 70 Objective Objective/Function: Palpated slight tenderness of the R adductor but not the pain she is talking about Stairs: up and down recip with 2 handrails with SBA Pt had increase pain with SLR on the R and did better with AA. She was able to do X 10 seated SLR with just lifting heel off the ground. L knee 0-135 L girth at patella 38.1 Goals Goal 1:: I HEP Goal Progress: Goal Met Goal 2:: Increase L knee AROM (at time of the eval -2 to 117) Goal 3:: Decrease inflammation (girth measurements at eval:L knee mid patella 39.1 cm and R 37 cm) Goal 4:: Be able to go up and down the stairs recip with 1 hand rail with no pain at least 50% of the time Goal Progress: Progressing Plan Plan: DC PT at this time to [facility] and back to Dr Louise D/C Information Discharge Comments: DC PT to [facility] d/c sentence: If there are questions or concerns regarding this patient's physical therapy, please feel free to call me at [phone]. Thank you for the referral of this patient. Sincerely, Katia Alvarez, MPT Balance/Gait/Functional tests Balance/Special Test Scores Lower Extremity Functional Score: 47 Improvement % Improvement: 70
== END 2024-01-03 12:14 | disposition home or self-care (01) ==
LOC: PT 10:30
PROVIDERS: PCP Family Medicine; Referring Provider Specialist; Visit Provider Specialist
DX: M17.12 Unilateral primary osteoarthritis, left knee (principal); M25.562 Pain in left knee
CPT/HCPCS: 97110; 97161; 97530

== ENCOUNTER → 2024-03-18 | Outpatient (CLI) | payer MEDICARE, OTHER, SELFPAY ==
--- NOTE | 2024-03-18 10:43 | RAD_ITS ---
STUDY: X-RAY - CERVICAL SPINE REASON FOR EXAM: Female, 74 years old. Spondylosis without myelopathy or radiculopathy, cervical region TECHNIQUE: 3 view(s) of the cervical spine were obtained. COMPARISON: 08/16/2023 FINDINGS: Normal anterior atlantoaxial articulation. Normal odontoid process. Normal cervical lordosis. There is multi-level endplate spondylosis. There is multi-level degenerative disc disease with multilevel disc space narrowing. Normal visualized intervertebral neuroforamina. The soft tissue structures are unremarkable. RAD/Cerv Spine 2 or 3 Views IMPRESSION: Severe degenerative disc disease lower cervical spine. MRI may be useful. Electronically Signed: Daryn Mcdonnell MD at 11:10 [facility] ,
== END | disposition home or self-care (01) ==
LOC: RAD 10:38
PROVIDERS: PCP Family Medicine; Referring Provider Anesthesiology Pain Medicine; Visit Provider Anesthesiology Pain Medicine
DX: M47.812 Spondylosis without myelopathy or radiculopathy, cervical region (principal)
CPT/HCPCS: 72040

== ENCOUNTER → 2024-04-18 | Outpatient (CLI) | payer MEDICARE, OTHER, SELFPAY ==
--- NOTE | 2024-04-18 13:14 | MRI_ITS ---
STUDY: MRI LUMBAR SPINE WITHOUT CONTRAST REASON FOR EXAM: Female, 74 years old. RADICULOPATHY TECHNIQUE: Standardized fat and water weighted pulse sequences were obtained in the sagittal and axial planes. COMPARISON: X-rays of the lumbar spine dated October 04, 2021. FINDINGS: No demonstrated marrow edema or fracture or compression deformity. No lytic or blastic/aggressive lesions are seen. No demonstrated evidence of vertebral osteomyelitis or discitis. Stable posterior fusion rods and pedicle screws at the L4-L5 level. Surgical decompressive defects are also present. Normal lumbar lordosis. There is a dextroscoliosis of the lumbar spine. Normal conus medullaris that terminates at the T12-L1 level. T12-L1: Severe disc space narrowing with diffuse disc spur complex. Endplate degenerative changes and small Schmorl''s nodes noted. Normal bilateral facet joints. Normal central canal and bilateral lateral recesses. Normal bilateral intervertebral neural foramina. L1-2: Moderate to severe disc space narrowing with a minimal diffuse disc spur complex. Mild Modic endplate degenerative changes and signal. Normal bilateral facet joints. Normal central canal and bilateral lateral recesses. Normal bilateral intervertebral neural foramina. L2-3: Severe disc space narrowing with a diffuse disc osteophyte complex. Moderate Modic endplate degenerative signal. Mild to moderate facet joint hypertrophy and degeneration. Normal central canal and bilateral lateral recesses. Normal bilateral intervertebral neural foramina. L3-4: Severe disc space narrowing with significant Modic endplate degenerative signal and changes. Diffuse disc osteophyte complex eccentric to the right causing right lateral recess stenosis with nerve root compression and mild to moderate central canal stenosis. Moderate facet joint and ligamenta flava hypertrophy contributing to central canal stenosis. Severe left foraminal stenosis with nerve root compression. Mild right foraminal stenosis. L4-5: Diffuse disc desiccation with mild to moderate disc space narrowing but no significant posterior herniation or bulging. Slight anterolisthesis of less than 2 mm. Mild facet joint hypertrophy. Mild bilateral foraminal stenosis. Normal central canal and bilateral lateral recesses. L5-S1: Severe disc space narrowing with a diffuse disc osteophyte complex. Mild facet joint hypertrophy and mild bilateral foraminal stenosis. Normal central canal and bilateral lateral recesses. Normal visualized sacral ala. Normal visualized paraspinous soft tissue structures. MRI/Spine Lumbar (Routine) IMPRESSION: Multilevel degenerative changes, as described above. Electronically Signed: Santy Henderson MD at 15:54 EST ,
== END | disposition home or self-care (01) ==
PROVIDERS: PCP Family Medicine; Referring Provider Anesthesiology Pain Medicine; Visit Provider Anesthesiology Pain Medicine
DX: M96.1 Postlaminectomy syndrome, not elsewhere classified (principal)
CPT/HCPCS: 72148

== ENCOUNTER → 2024-05-28 | Outpatient (CLI) | payer MEDICARE, OTHER, SELFPAY ==
--- NOTE | 2024-05-28 13:12 | ART_ITS ---
Reason For Study Reason For Study: PVD Procedure A bilateral lower extremity continuous wave Doppler with analog waveform analysis,segmental pressures,and ankle brachial indexes without exercise. Left Segmental Pressures Left brachial= 122mmHg. Left posterior tibial artery = 156mmHg. Left dorsalis pedis artery = 153mmHg. Left digit = 110 mmHg. The left dorsalis pedis waveforms are triphasic. The left posterior tibial artery waveforms are triphasic. Right Segmental Pressures Right brachial= 133mmHg. Right posterior tibial artery = 166mmHg. Right dorsalis pedis artery = 138mmHg. Right digit = 96 mmHg. The right dorsalis pedis waveforms are triphasic. The right posterior tibial artery waveforms are triphasic. Indices The right ankle brachial index by the dorsalis pedis is 1.04. The right ankle brachial index by the posterior tibial artery is 1.25. The right digital-brachial index is 0.72. The left ankle brachial index by the dorsalis pedis is 1.15. The left ankle brachial index by the posterior tibial artery is 1.17. The left digital-brachial index is 0.83. VL/Lower Ext Art Exam w/o Exercis Interpretation Summary Triphasic Doppler waveforms are noted at ankle level bilaterally. Pulse-volume recordings appear satisfactory at all levels bilaterally. Resting ankle-brachial indices are normal bilaterally. Digi paris-brachial indices are normal bilaterally. There is no evidence of significant arterial occlusive disease in the lower ext remities bilaterally. Ordering Physician: Edwin Correa Referring Physician: Danny Saldaña Performed By: Zenaida Stallworth RVT
== END | disposition home or self-care (01) ==
LOC: CVS 13:08
PROVIDERS: PCP Family Medicine; Referring Provider Podiatrist; Visit Provider Podiatrist
DX: I73.9 Peripheral vascular disease, unspecified (principal)
CPT/HCPCS: 93923

== ENCOUNTER → 2024-08-16 | Outpatient (CLI) | payer MEDICARE, OTHER, SELFPAY ==
--- NOTE | 2024-08-16 10:40 | RAD_ITS ---
PROCEDURE: KNEE 4 OR MORE VIEWS 08/16/2024 REASON FOR EXAM: KNEE PAIN TECHNIQUE: 4 view(s) of the right knee FINDINGS: The lateral view is limited due to obliquity. No fracture, dislocation or joint effusion identified. The joint spaces appear within limits. RAD/Knee 4 or More Views IMPRESSION: The study appears within limits as above. Reading Location: [id number]
--- NOTE | 2024-08-16 10:40 | RAD_ITS ---
PROCEDURE: KNEE 4 OR MORE VIEWS 08/16/2024 REASON FOR EXAM: KNEE PAIN TECHNIQUE: 4 view(s) of the left knee FINDINGS: No fracture, dislocation or joint effusion. Mild degenerative changes lateral aspect of the patellofemoral joint. Joint spaces otherwise appear within limits. RAD/Knee 4 or More Views IMPRESSION: No fracture, dislocation or joint effusion. Mild patellofemoral compartment osteoarthrosis as above. Reading Location: [id number]
--- NOTE | 2024-08-16 10:40 | RAD_ITS ---
PROCEDURE: PELVIS 1 OR 2 VIEWS 08/16/2024 REASON FOR EXAM: KNEE AND HIP PAIN TECHNIQUE: 1 view(s) of the pelvis. COMPARISON: 10/18/2023 FINDINGS: No fracture or dislocation identified. Partially imaged right hip replacement again noted as well as bilateral posterior fusion L4-5. Multilevel spondylosis/discogenic change lower lumbar spine again noted. Symmetric appearing SI joints and pubic symphysis appear within limits. RAD/Pelvis 1 or 2 Views IMPRESSION: No fracture or dislocation identified. Partially imaged right hip replacement again noted as well as bilateral posteri or fusion L4-5. Multilevel spondylosis/discogenic change lower lumbar spine again noted. Reading Location: [id number]
[2024-08-16 11:31] LABS: Absolute Lymphocyte Count 1.98 X10^3/uL (0.83-4.51); Absolute Neutrophil Count 3.1 X10^3/uL (2.0-7.7); Basophil# 0.06 X10^3/uL; Basophil% 1.1 % (0-1); Eosinophil# 0.12 X10^3/uL; Eosinophils% 2.2 % (0-5); Hematocrit 36.5 % (37-47); Hemoglobin 12.1 g/dL (12.0-15.0); Lymphocyte # 1.98 X10^3/ul (0.83-4.51); Lymphocyte % 35.5 % (19-41); Mean Corp Hgb Conc 33.2 g/dL (32-36); Mean Corpuscular Hgb 30.8 pg (27.0-32.0); Mean Corpuscular Volume 92.9 fL (81-99); Monocyte# 0.35 X10^3/uL; Monocyte% 6.3 % (0-10); NRBC Flagged by Analyzer 0 % (0-5); Neutrophil # 3.05 X10^3/uL (2.7-7.7); Neutrophil % 54.7 % (47-70); Platelet Count 299 K/mm3 (150-450); RBC Distribution Width CV 13.7 % (11.6-14.6); RBC Distribution Width SD 47.2 fl (35.1-43.9); Red Blood Count 3.93 M/mm3 (4.2-5.4); White Blood Count 5.6 K/mm3 (4.4-11.0)
[2024-08-16 11:35] LABS: Erythrocyte Sedimentation Rate 4 mm/hr (0-30)
[2024-08-16 12:23] LABS: Hepatitis B Surface Antibody Nonreactive
[2024-08-16 12:43] LABS: ALB/GLOB Ratio 1.4 RATIO (0.9-2.4); AST(SGOT) 26 U/L (<=31); Alanine Aminotransfer ALT/SGPT 13 U/L (<=34); Albumin, Serum 4.2 g/dL (3.4-4.8); Alkaline Phosphatase 61 U/L (35-104); Anion Gap 11 (5-15); BUN 25 mg/dL (4-19); BUN/Creat Ratio 25.7 RATIO (10-20); CRP 3.26 mg/L (0.0-3.0); Calcium,Total 9.7 mg/dL (7.6-11.0); Carbon Dioxide 24.3 mmol/L (21.0-32.0); Chloride 102 mmol/L (98-108); Creatinine, Serum 0.98 mg/dL (0.70-1.20); EST Glomerular Filtration Rate 61 (>60); Globulin 2.9 g/dL (2.2-4.2); Glucose 87 mg/dL (70-99); Hepatitis B Surface Antigen Nonreactive (Nonreactive); Hepatitis C Antibody Nonreactive (Nonreactive); Potassium 4.3 mmol/L (3.3-5.1); Protein, Total 7.2 g/dL (5.9-8.4); Rheumatoid Factor < 10.0 IU/mL (<15); Sodium Level 137 mmol/L (133-145)
[2024-08-19 14:08] LABS: ANTINUCLEAR ANTIBODIES DIRECT Negative (Negative); CCP IgG Antibodies 11 units (0-19)
== END | disposition home or self-care (01) ==
LOC: RAD 10:09
PROVIDERS: PCP Family Medicine; Referring Provider Internal Medicine Rheumatology; Visit Provider Internal Medicine Rheumatology
DX: M06.4 Inflammatory polyarthropathy (principal); M47.897 Other spondylosis, lumbosacral region
CPT/HCPCS: 36415; 72170; 73564; 80053; 85025; 85652; 86038; 86140; 86200; 86431; 86706; 86803; 87340

== ENCOUNTER 2024-08-29 10:22 | Emergency (ER) | payer MEDICARE, OTHER, SELFPAY ==
[2024-08-29 10:24] VITALS: BP 151/74; PULSE 65; RESP 16; TEMP 36.7; O2SAT 99; BMI 26.3
--- NOTE | 2024-08-29 10:40 | ED.VIS.LOWEX ---
HPI History of Present Illness Chief Complaint: Lower Extremity Injury Detail of Chief Complaint: Left hip pain Informant: patient Narrative Narrative: Patient presents the emergency department complaint left hip pain that started 4 days ago. Patient states that she was in sikh sitting and when she tried to stand up had sudden onset of severe pain in her left hip which made it difficult to bear any weight. Patient states that she has had prior right total hip replacement and has had a spinal fusion 8 years ago. Patient has been having some pain radiating down her left leg and saw Dr. Gross of orthopedics who referred her to Dr. Raines after she had an MRI of her back in April. Patient is scheduled to see Dr. Raines in a few weeks. This pain feels different than its new to the left hip. Patient able to bear weight with a walker but painful. She can walk while holding onto things. She denies fevers chills or sweats. She denies falls. [facility] Medical History (Updated 08/29/24 @ 13:[address] Lelia Ivy, DO) Hypertension Alcohol use disorder Hyponatremia Major depressive disorder in partial remission Viral URI with cough Laceration of right thumb with damage to nail Acute bronchitis, unspecified URI (upper respiratory infection) Contact with or suspected exposure to other viral communicable disease Head congestion Headache Home Medications ?Medication ?Instructions ?Recorded ?Last Taken ?Type [id number] 8 mg-folic 400 1 tab PO DAILY 06/02/22 Unknown History mcg-K 50 mcg-lutein 300 mcg tablet (Centrum Silver Women) cilostazol 100 mg tablet 100 mg PO BID 07/21/22 Unknown History furosemide 20 mg tablet (Lasix) 20 mg PO BID 07/21/22 Unknown History sodium chloride 1,000 mg soluble 1,000 mg PO QD-QID PRN 07/21/22 Unknown History tablet acetaminophen 650 mg 1,300 mg PO ONCE 09/13/22 Unknown History tablet,extended release (Tylenol 8 Hour) amlodipine 10 mg tablet 10 mg PO BID 09/13/22 Unknown History azelastine 137 mcg-fluticasone 50 1 spray intranasal BID PRN 09/13/22 Unknown History mcg/spray nasal spray naproxen sodium 220 mg tablet 220 mg PO DAILY 09/13/22 Unknown History (Aleclaudia) pregabalin 100 mg capsule 100 mg PO BID 09/13/22 Unknown History duloxetine 60 mg capsule,delayed 120 mg (2 x 60 mg) PO DAILY 90 03/13/24 Unknown Rx release days #180 caps trazodone 100 mg tablet 100 mg PO QHS PRN sleep #180 tabs 03/13/24 Unknown Rx oxycodone-acetaminophen 5 mg-325 1 tab PO Q8H PRN pain 3 days #15 08/29/24 Unknown Rx mg tablet (Percocet) tabs Allergy/AdvReac Type Severity Reaction Status Date / Time No Known Allergies Allergy Verified 08/29/24 10:26 Family History Other Alzheimer disease Heart disease Surgical History (Updated 08/29/24 @ 10:53 by Breanne Marino) History of back surgery History of hip replacement Social History Smoking Status: Never smoker ROS ROS ED Review of Systems ROS Unobtainable: other Constitutional Constitutional ED: Reports lethargy; Denies chills, fever(s), sweats or weight loss Eyes Eyes: Denies blurry vision, change in vision or diplopia ENT ENT ED: Denies rhinorrhea or sore throat Cardiovascular Cardiovascular: Denies chest pain, orthopnea or racing heartbeat Respiratory/Chest Respiratory/Chest: Denies cough, dyspnea, dyspnea on exertion, orthopnea or sputum Gastrointestinal Gastrointestinal: Denies abdominal pain, diarrhea, nausea or vomiting Genitourinary Genitourinary ED: Denies dysuria, hematuria or urinary frequency Musculoskeletal Musculoskeletal: Reports other Details: Left hip pain ; Denies arthralgias, back pain, myalgias or neck pain Integumentary Denies abscess, Abrasions or rash Neurologic Neurologic: Denies headache(s) or weakness Psychiatric Psychiatric: Denies anxiety, depression or suicidal thoughts Endocrine Endocrinology: Denies polydipsia, polyphagia or polyuria Hematologic/Lymphatic Hematologic/Lymphatic: Denies easy bleeding, easy bruising or lymphadenopathy Allergic/Immunologic Allergic/Immunologic ED: Denies mouth swelling, tongue swelling or urticaria EXAM Physical Exam Const Vital Signs: 08/29/24 10:24 Temperature 98.1 F Temperature Source Oral Pulse Rate 65 Respiratory Rate 16 Blood Pressure 151/74 H Blood Pressure Mean 99 Pulse Ox 99 Oxygen Delivery Method Room Air Positive well nourished and well developed General Appearance ED: well developed and NAD HEENT Reports TM's clear and moist mucous membranes normocephalic and atraumatic; Negative for trauma or tenderness Tympanic Membrane ED: Yes TM's clear Eyes PERRL and EOMs intact bilaterally General Eye ED: Negative for pale conjunctiva or scleral icterus Neck no lymphadenopathy, supple and no JVD General: Negative for tenderness Chest Wall inspection of chest normal and palpation of chest normal Chest: Negative for tenderness Resp normal respiratory effort and clear to auscultation bilaterally Effort and Inspection: Negative for respiratory distress or pain with movement Auscultation: Negative for rhonchi, wheezes or diminished lung sounds Cardio regular rate, regular rhythm, S1 normal heart sound, S2 normal heart sound and no murmurs Peripheral Pulses: pulses 2+ throughout GI normal to inspection, nondistended, normoactive bowel sounds, soft to palpation, non-tender, non-distended and no masses Back/Spine no CVA tenderness and no thoracic nor lumbar tenderness Extremity normal to inspection Extremity Narrative: Left hip-no erythema or warmth noted over the hip. She has pain with range of motion with straight leg raising and logrolling in the hip. There is no shortening or rotational deformity. She is neurovascular intact distally. She has tenderness over the lateral aspect of the hip joint. Palpation of the hip joint seems to reproduce her pain. General Extremety ED: Negative for edema General Extremity: Negative for edema Neuro oriented x3, CN's II-XII intact bilaterally, no sensory deficits noted and gait normal Sensorium / Orientation: awake, alert, oriented to person, oriented to place and oriented to time Motor Exam: strength 5/5 throughout and strength abnormal Psych mental status grossly normal Skin no rashes or lesions noted and no wounds MDM MDM MDM Narrative Medical decision making narrative: Left hip pain x 4 days sudden onset with running standing sikh. Patient has history of some chronic back pain issues with some radiculopathy down the left leg for which she had an MRI in April that showed some nerve impingement on the left at L3-4 as well as L5-S1. I was able to look up patient's MRI results from April. Patient seeing Dr. Raines back specialist September 12 for this. No evidence of infection on exam of the hip and there is no shortening or deformity. Patient had an IV line established. She did only thing for pain other than Tylenol which I did give her a gram p.o. CBC with differential white count 5.6 with hemoglobin 12.4 and platelet count of 293. Sed rate was normal at 4 and CRP was elevated at 4.78. X-rays of the left hip and pelvis obtained showed no acute fractures. Patient's pain very positional with range of motion at the hip. No obvious weakness noted of the lower extremities. Normal L5 extension bilaterally and normal sensation to light touch. Suspect possibly soft tissue injury to the left hip. I do not suspect an infectious process such as a septic joint. She will require further follow-up and will refer to Dr. Gross of orthopedics whom she seen in the past. She may require further imaging such as possibly MRI to evaluate if symptoms do not improve. It is also possible her pain may be related to her back and related to radiculopathy Lab Data Attestation: I reviewed the patient's lab results. Labs: Laboratory Results - last 24 hr 08/29/24 10:37 WBC 5.6 RBC 4.00 L Hgb 12.4 Hct 37.7 MCV 94.3 MCH 31.0 MCHC 32.9 RDW Std Deviation 48.0 H RDW Coeff of Anibal 14.0 Plt Count 293 MPV 10.0 Immature Gran % (Auto) 0.400 Neut % (Auto) 63.2 Lymph % (Auto) 27.4 Harris % (Auto) 6.8 Eos % (Auto) 1.1 Baso % (Auto) 1.1 H Absolute Neuts (auto) 3.5 Absolute Lymphs (auto) 1.53 Nucleated RBC % 0 ESR 4 C-React Prot Ext Range 4.78 H Radiography Diagnostic Testing: Clinical Impression(s) from Imaging Studies Hip/Pelvis X-Ray 08/29/24 11:05 IMPRESSION: No fracture or dislocation is identified in the left hip. Reading Location: [facility] Three-view x-rays of left hip and pelvis obtained interpreted by myself as no evidence of fracture or lytic lesions or other acute process. Radiology in agreement. Discharge Plan Triage Chief Complaint: Lower Extremity Injury ED Provider: Lelia Ivy Dx/Rx/DC Orders Clinical Impression: Acute hip pain, Back pain Instructions: ED Back Pain (Acute or Chronic), ED Pain, Acute, Uncertain Cause Prescriptions: New oxycodone-acetaminophen [Percocet] 5-325 mg tablet 1 tab PO Q8H PRN (Reason: pain) 3 Days Qty: 15 0RF No Action Centrum Silver Women 8 mg iron-400 mcg-300 mcg tablet 1 tab PO DAILY azelastine-fluticasone 137-50 mcg/spray spray,non-aerosol 1 spray intranasal BID PRN Rx Instructions: administer into each nostril pregabalin 100 mg capsule 100 mg PO BID naproxen sodium [Aleve] 220 mg tablet 220 mg PO DAILY Rx Instructions: am acetaminophen [Tylenol 8 Hour] 650 mg tablet extended release 1,300 mg PO ONCE Rx Instructions: every pm furosemide [Lasix] 20 mg tablet 20 mg PO BID sodium chloride 1,000 mg tablet,soluble 1,000 mg PO QD-QID PRN cilostazol 100 mg tablet 100 mg PO BID amlodipine 10 mg tablet 10 mg PO BID trazodone 100 mg tablet 100 mg PO QHS PRN (Reason: sleep) Qty: 180 1RF duloxetine 60 mg capsule,delayed release(DR/EC) 120 mg PO DAILY 90 Days Qty: 180 2RF Primary Care Provider: Danny Saldaña Referrals: Daniel Gross MD [Med Staff - Active Staff] - 3-5 Days Danny Saldaña MD [Primary Care Provider] - Print Language: Greek Disposition Disposition: Home, Self Care
[2024-08-29] MEDS: Acetaminophen 500 MG Tablet 1000 MG PO (10:58)
--- NOTE | 2024-08-29 11:05 | RAD_ITS ---
PROCEDURE: HIP, UNI W/ PELVIS 2-3 VIEWS 08/29/2024 REASON FOR EXAM: PAIN TECHNIQUE: One view of the pelvis with two views of the left hip COMPARISON: August 16, 2024 FINDINGS: There is a total hip prosthesis in position on the right, incompletely visualized. Hardware is noted in the lumbar spine. The left hip joint space appears maintained. There is no fracture identified. Mineralization is normal. The visualized pelvic bones appear intact. RAD/HIP, UNI W/ Pelvis 2-3 Views IMPRESSION: No fracture or dislocation is identified in the left hip. Reading Location: [facility]
[2024-08-29 11:58] LABS: CRP 4.78 mg/L (0.0-3.0)
[2024-08-29 12:32] LABS: Erythrocyte Sedimentation Rate 4 mm/hr (0-30)
[2024-08-29 12:45] LABS: Absolute Lymphocyte Count 1.53 X10^3/uL (0.83-4.51); Absolute Neutrophil Count 3.5 X10^3/uL (2.0-7.7); Basophil# 0.06 X10^3/uL; Basophil% 1.1 % (0-1); Eosinophil# 0.06 X10^3/uL; Eosinophils% 1.1 % (0-5); Hematocrit 37.7 % (37-47); Hemoglobin 12.4 g/dL (12.0-15.0); Lymphocyte # 1.53 X10^3/ul (0.83-4.51); Lymphocyte % 27.4 % (19-41); Mean Corp Hgb Conc 32.9 g/dL (32-36); Mean Corpuscular Volume 94.3 fL (81-99); Monocyte# 0.38 X10^3/uL; Monocyte% 6.8 % (0-10); NRBC Flagged by Analyzer 0 % (0-5); Neutrophil # 3.53 X10^3/uL (2.7-7.7); Neutrophil % 63.2 % (47-70); Platelet Count 293 K/mm3 (150-450); White Blood Count 5.6 K/mm3 (4.4-11.0)
[2024-08-29 13:32] VITALS: BP 125/67; PULSE 63; RESP 16; TEMP 36.8; O2SAT 98
== END 2024-08-29 13:42 | disposition home or self-care (01) ==
PROVIDERS: Emergency Provider Emergency Medicine; PCP Family Medicine; Visit Provider Emergency Medicine
DX: M25.552 Pain in left hip (principal); M54.9 Dorsalgia, unspecified
CPT/HCPCS: 73502; 85025; 85652; 86140; 99283

== ENCOUNTER → 2024-11-15 | Outpatient (CLI) | payer MEDICARE, OTHER, SELFPAY ==
[2024-11-15 11:39] LABS: Hematocrit 37.0 % (37-47); Hemoglobin 12.6 g/dL (12.0-15.0); Immature Granulocytes Count 0.030 X10^3/uL (0.0-0.0); Mean Corp Hgb Conc 34.1 g/dL (32-36); Mean Corpuscular Volume 91.8 fL (81-99); Mean Platelet Vol. 9.3 fl (6.2-12.0); NRBC Flagged by Analyzer 0 % (0-5); Platelet Count 350 K/mm3 (150-450); RBC Distribution Width CV 14.2 % (11.6-14.6); RBC Distribution Width SD 47.5 fl (35.1-43.9); Red Blood Count 4.03 M/mm3 (4.2-5.4); White Blood Count 7.1 K/mm3 (4.4-11.0)
[2024-11-15 12:51] LABS: AST(SGOT) 28 U/L (<=31); Alanine Aminotransfer ALT/SGPT 13 U/L (<=34); Albumin, Serum 4.2 g/dL (3.4-4.8); Alkaline Phosphatase 81 U/L (35-104); Anion Gap 12 (5-15); BUN 11 mg/dL (4-19); BUN/Creat Ratio 14.1 RATIO (10-20); Calcium,Total 9.3 mg/dL (7.6-11.0); Carbon Dioxide 23.8 mmol/L (21.0-32.0); Chloride 91 mmol/L (98-108); Globulin 2.9 g/dL (2.2-4.2); Glucose 123 mg/dL (70-99); Potassium 4.2 mmol/L (3.3-5.1)
== END | disposition home or self-care (01) ==
LOC: LAB 11:00
PROVIDERS: PCP Family Medicine; Referring Provider Internal Medicine Rheumatology; Visit Provider Internal Medicine Rheumatology
DX: M06.4 Inflammatory polyarthropathy (principal); M79.7 Fibromyalgia; Z79.899 Other long term (current) drug therapy
CPT/HCPCS: 36415; 80053; 85025

== ENCOUNTER → 2025-01-29 | Outpatient (CLI) | payer MEDICARE, OTHER, SELFPAY ==
[2025-01-29 12:46] LABS: Hematocrit 35.7 % (37-47); Hemoglobin 11.9 g/dL (12.0-15.0); Immature Granulocytes Count 0.010 X10^3/uL (0.0-0.0); Mean Corp Hgb Conc 33.3 g/dL (32-36); Mean Corpuscular Volume 93.2 fL (81-99); Mean Platelet Vol. 9.3 fl (6.2-12.0); NRBC Flagged by Analyzer 0 % (0-5); Platelet Count 340 K/mm3 (150-450); RBC Distribution Width CV 15.8 % (11.6-14.6); RBC Distribution Width SD 53.5 fl (35.1-43.9); Red Blood Count 3.83 M/mm3 (4.2-5.4); White Blood Count 6.3 K/mm3 (4.4-11.0)
[2025-01-29 13:37] LABS: AST(SGOT) 23 U/L (<=31); Alanine Aminotransfer ALT/SGPT 11 U/L (<=34); Albumin, Serum 4.2 g/dL (3.4-4.8); Alkaline Phosphatase 73 U/L (35-104); Anion Gap 10 (5-15); BUN 16 mg/dL (4-19); BUN/Creat Ratio 14.3 RATIO (10-20); Calcium,Total 9.9 mg/dL (7.6-11.0); Carbon Dioxide 27.7 mmol/L (21.0-32.0); Chloride 98 mmol/L (98-108); Globulin 2.7 g/dL (2.2-4.2); Glucose 91 mg/dL (70-99); Potassium 4.2 mmol/L (3.3-5.1)
== END | disposition home or self-care (01) ==
LOC: LAB 11:49
PROVIDERS: PCP Family Medicine; Referring Provider Internal Medicine Rheumatology; Visit Provider Internal Medicine Rheumatology
DX: M06.4 Inflammatory polyarthropathy (principal); Z79.899 Other long term (current) drug therapy
CPT/HCPCS: 36415; 80053; 85025

== ENCOUNTER → 2025-02-11 | Outpatient (CLI) | payer MEDICARE, OTHER, SELFPAY | END | disposition home or self-care (01) | LOC: LABSPEC 11:26 | PROVIDERS: PCP Family Medicine; Visit Provider Physician Assistant | DX: R30.9 Painful micturition, unspecified (principal) | CPT/HCPCS: 87077; 87086; 87088; 87186 ==

== ENCOUNTER 2025-02-12 12:00 | Outpatient (RCR) | payer MEDICARE, OTHER, SELFPAY ==
--- NOTE | 2025-01-01 12:36 | HP.PTEVAL_ITS ---
Patient's Visit Information Visit Information Visit Information: OMI CASEY is a 74 year old F referred to Physical Therapy by BAYRON Ward with a diagnosis of L RICCARDO 12/04/24.. Date of Evaluation: 01/01/25 Physical Therapist: Nabil Alexandre, PT, ATC Visit Plan Frequency: 2x /Week Duration: 4-8 weeks Plan: L LE strengthening, R hip psoas stretches, core strengthening, balance and proprio, gait training, stair negotiation, nustep, and HEP Subjective Subjective: DOS: 12/04/24. pt notes she had a L RICCARDO performed at that time. Pt reports she spent 3 days in the hospital, then 2 weeks in inpatient rehab. Pt then had home health last week and is now here to begin outpatient therapy. Pt notes she had to have a RICCARDO performed secondary to having a fracture in her L hip. Pt notes she had no mechanism of injury, just stood up in anglican and experienced severe pain. Pt notes she has low bone density. Pt reports she is in a lot of pain today from overdoing it yesterday while making chili. Pt has been ambulating with a cane since her surgery. Pt reports she is a very active person, and wants to be able to walk her dog again soon and work on her garden. Pt is able to sleep throughout the night with the use of pain meds. Pt reports she has stairs in her house that she needs to negotiate daily. Pt has difficulty with those steps negotiating them one step at a time. Pt denies LE tingling or numbness. 4/10 pain level while sitting here at rest, 10/10 pain at worst. Pain L hip: Pain Intensity (Out of 10): 4 Pain Intensity Range: 10 Objective Objective: Neuro: B LE sensation is WNL to light touch. TU sec MMT: R hip flex= 21, abd= 24, add= 39; L hip flex= 12, abd= 23, add= 31 #F ROM: R hip flex= 70, ext= 10; L hip flex= 85, ext= 0 degrees 6 min walk test: 780 feet in 5 min, 15 sec until needing to rest Balance/Special Test Scores Lower Extremity Functional Score: 12 Goals Goal 1:: Decrease L hip pain x 50% to aid with sleep Goal Time Frame: 6-8 Weeks Goal 2:: Increase L hip strength to equal 90 % of R hip strength to aid with return to IADL's Goal Time Frame: 6-8 Weeks Goal 3:: Perform TUG test in under 10 sec to aid with gait efficiency Goal Time Frame: 6-8 Weeks Goal 4:: I with HEP Goal Time Frame: 4-6 Weeks Goal 5:: Pt will be able to complete the 6 minute walk test without any rests to aid with community ambulation Rehabilitation Potential Physical Therapy Diagnosis: Pt has L hip pain, weakness, and limited ambulatory ability secondary to L RICCARDO Rehabilitation Potential: Good Anticipated Interventions Patient/Client Instruction: Educate patient on: Condition and Plan of Care For the Purpose of:: To improve self management Therapeutic Exercise to Include: Strength training, Endurance training, Balance training, Gait and locomotor training, Active ROM and Dynamic Lumbar Stabilization For the Purpose of:: To decrease pain, To increase ROM and To improve muscle performance and motor function Cryotherapy (ice pack, ice massage): Yes For the Purpose of:: To decrease pain Text: Thank you for the opportunity to evaluate your patient. For Medicare and Medicare HMO plans, please review the plan of care and approve it. It will need to be FAXED BACK to us at [phone] for Medicare purposes. For Medicare only, by signing this I certify the plan of care. Please let me know if there are questions or concerns regarding this plan of care. Physician Signature: Date:
--- NOTE | 2025-04-15 11:09 | HP.PTDCSUM ---
Discharge Summary D/C summary: It has been my pleasure to treat OMI CASEY referred by Juan Carlos Adler NP-C, with the diagnosis of L RICCARDO 12/04/24. for a total of 10 visit(s). Discharge Date: Please see the following information for a summary of their discharge status. Subjective Subjective: Pt reports she has been limited mostly by LBP Pain L hip: Pain Intensity (Out of 10): 3 back: Pain Intensity (Out of 10): 10 bilat knee: Pain Intensity (Out of 10): 4 Overall Improvement % Improvement: 60 Objective Objective/Function: L hip pain is 3/10 TU.8 sec MMT: L hip flex= 16, abd= 23, add= 39 #F 6 min walk test: Pt was able to ambulate 1000 feet in 5 min until having to rest secondary to R LE radiculopathy. Goals Goal 1:: Decrease L hip pain x 50% to aid with sleep Goal Progress: Progressing Goal 2:: Increase L hip strength to equal 90 % of R hip strength to aid with return to IADL's Goal Progress: Progressing Goal 3:: Perform TUG test in under 10 sec to aid with gait efficiency Goal Progress: Progressing Goal 4:: I with HEP Goal Progress: Goal Met Goal 5:: Pt will be able to complete the 6 minute walk test without any rests to aid with community ambulation Plan Plan: Discontinue to I HEP D/C Information d/c sentence: If there are questions or concerns regarding this patient's physical therapy, please feel free to call me at [phone]. Thank you for the referral of this patient. Sincerely, Nabil Alexandre, PT, ATC Balance/Gait/Functional tests Balance/Special Test Scores Lower Extremity Functional Score: 19 Improvement % Improvement: 60
== END 2025-02-12 19:00 | disposition home or self-care (01) ==
LOC: PT 12:00
PROVIDERS: PCP Family Medicine
DX: R29.898 Other symptoms and signs involving the musculoskeletal system (principal)
CPT/HCPCS: 97110; 97161; 97530

== ENCOUNTER → 2025-03-26 | Outpatient (CLI) | payer MEDICARE, OTHER, SELFPAY ==
[2025-03-26 17:01] LABS: Hematocrit 36.3 % (37-47); Hemoglobin 11.9 g/dL (12.0-15.0); Immature Granulocytes Count 0.010 X10^3/uL (0.0-0.0); Mean Corp Hgb Conc 32.8 g/dL (32-36); Mean Corpuscular Volume 93.8 fL (81-99); Mean Platelet Vol. 9.6 fl (6.2-12.0); NRBC Flagged by Analyzer 0 % (0-5); Platelet Count 316 K/mm3 (150-450); RBC Distribution Width CV 16.8 % (11.6-14.6); RBC Distribution Width SD 57.1 fl (35.1-43.9); Red Blood Count 3.87 M/mm3 (4.2-5.4); White Blood Count 6.3 K/mm3 (4.4-11.0)
[2025-03-26 17:35] LABS: AST(SGOT) 24 U/L (<=31); Alanine Aminotransfer ALT/SGPT 14 U/L (<=34); Albumin, Serum 4.4 g/dL (3.4-4.8); Alkaline Phosphatase 62 U/L (35-104); Anion Gap 13 (5-15); BUN 15 mg/dL (4-19); BUN/Creat Ratio 15.9 RATIO (10-20); Calcium,Total 9.8 mg/dL (7.6-11.0); Carbon Dioxide 25.2 mmol/L (21.0-32.0); Chloride 97 mmol/L (98-108); Globulin 2.6 g/dL (2.2-4.2); Glucose 100 mg/dL (70-99); Potassium 4.1 mmol/L (3.3-5.1)
== END | disposition home or self-care (01) ==
LOC: LAB 16:05
PROVIDERS: PCP Family Medicine; Visit Provider Internal Medicine Rheumatology
DX: M06.4 Inflammatory polyarthropathy (principal); Z79.899 Other long term (current) drug therapy
CPT/HCPCS: 36415; 80053; 85025